=== PATIENT | male | born 1945 | race Caucasian/White ===

== ENCOUNTER → 2016-07-08 | Outpatient (CLI) | payer OTHER ==
[2016-07-08 13:38] LABS: CHOLESTEROL/HDL RATIO 3.5; PROSTATE SPECIFIC ANTIGEN 3.22 ng/ml (0.000-4.000)
== END | disposition home or self-care (01) ==
LOC: C.LABMFLN 07:09
PROVIDERS: ATTEND Family Medicine
DX: R73.09 Other abnormal glucose (principal); E78.01 Familial hypercholesterolemia; R97.20 Elevated prostate specific antigen [PSA]

== ENCOUNTER → 2017-07-06 | Outpatient (CLI) | payer OTHER | END | disposition home or self-care (01) | LOC: C.LABMFLN 07:03 | PROVIDERS: ATTEND Family Medicine | DX: E78.01 Familial hypercholesterolemia (principal); R73.09 Other abnormal glucose; R97.20 Elevated prostate specific antigen [PSA]; Z12.5 Encounter for screening for malignant neoplasm of prostate ==